=== PATIENT | female | born 1990 | race African-American/Black ===

== ENCOUNTER 2020-07-09 08:55 | Inpatient (IN) | payer BC, SELFPAY ==
[~2020-07-09] VITALS: Ht 160 cm; Wt 71.2 kg
[2020-07-09] MEDS ORDERED: LR 1,000 ML IV SCH ×2 (10:15→10:30)
[2020-07-09] MEDS ORDERED: NALBUPHINE HCL 10 MG/ML AMP IVP PRN (10:15)
[2020-07-09] MEDS ORDERED: OXYTOCIN/0.9 % SODIUM CHLORIDE 1,000 ML IV SCH (10:15)
[2020-07-09] MEDS ORDERED: FENT2mCg/mL-ROPIVA0.2%/NS EPID 200 ML EP SCH (10:23)
[2020-07-09] MEDS ORDERED: fentaNYL CITRATE/PF 100 MCG/2 ML AMP ONE (10:23)
[2020-07-09] MEDS ORDERED: ROPIVACAINE HCL/PF 0.2% 200 ML ONE (10:24)
[2020-07-09 10:34] LABS: BASOPHILS % (AUTO) 0.5 % (0.0-2.0); EOSINOPHILS # (AUTO) 0.3 K/uL (0.0-0.4); EOSINOPHILS % (AUTO) 2.7 % (0.0-4.0); HEMATOCRIT 33.7 % (36-48); HEMOGLOBIN 11.4 g/dL (12.0-16.0); LYMPHOCYTES # (AUTO) 2.2 K/uL (1.0-5.5); LYMPHOCYTES % (AUTO) 22.8 % (20.5-51.5); MEAN CORPUSCULAR HEMOGLOBIN 27 pg (27-31); MEAN CORPUSCULAR HGB CONC 34 % (32-36); MEAN CORPUSCULAR VOLUME 80 fL (79.0-98.0); MONOCYTES # (AUTO) 0.6 K/uL (0.0-1.0); MONOCYTES % (AUTO) 5.8 % (1.7-9.3); NEUTROPHILS # (AUTO) 6.6 K/uL (1.8-7.7); NEUTROPHILS % (AUTO) 68.2 % (40.0-70.0); PLATELET COUNT (AUTO) 223 K/uL (130-430); RED BLOOD CELL COUNT(AUTO) 4.18 MIL/uL (4.2-6.2); RED CELL DISTRIBUTION WIDTH 14.7 % (9.0-15.0); WHITE BLOOD COUNT (AUTO) 9.6 K/uL (4.8-10.8)
[2020-07-09] MEDS ORDERED: OXYTOCIN/0.9 % SODIUM CHLORIDE 1,000 ML IV ONE ×2 (11:51→17:45)
[2020-07-09 13:51] VITALS: BP_SYST 128
[2020-07-09] MEDS ORDERED: METHYLERGONOVINE MALEATE 0.2 MG/ML AMP ONE (17:40)
[2020-07-09] MEDS ORDERED: METHYLERGONOVINE MALEATE 0.2 MG/ML AMP IM ONE (17:40)
[2020-07-09] MEDS ORDERED: LANOLIN 7 GM OINT. TP PRN (17:45)
[2020-07-09] MEDS ORDERED: METHYLERGONOVINE MALEATE 0.2 MG TABLET PO PRN (17:45)
[2020-07-09] MEDS ORDERED: OXYCODONE/ACETAMINOPHEN 5-325 TABLET PO PRN ×2 (17:45)
[2020-07-09] MEDS ORDERED: ANUSOL 1 EA SUPP.RECT (PREPARATION H) RC PRN (17:45)
[2020-07-09] MEDS ORDERED: DERMOPLAST SPRAY TP PRN (17:45)
[2020-07-09] MEDS ORDERED: WITCH HAZEL LEAF 1 MED.PAD MED.PAD TP PRN (17:45)
[2020-07-09] MEDS ORDERED: OXYTOCIN 10 UNIT/ML VIAL ONE (17:46)
[2020-07-09] MEDS ORDERED: OXYTOCIN 10 UNIT/ML VIAL IM ONE (17:46)
[2020-07-09] MEDS ORDERED: TEMAZEPAM 15 MG CAPSULE PO PRN (21:00)
[2020-07-09] MEDS: IBUPROFEN 800 MG TABLET PO PRN (23:07)
[2020-07-09] MEDS: DOCUSATE SODIUM 100 MG CAPSULE PO PRN (23:07)
[2020-07-10] MEDS: IBUPROFEN 800 MG TABLET PO PRN ×4 (06:41→23:31)
[2020-07-10 07:20] LABS: HEMATOCRIT 31.4 % (36-48); HEMOGLOBIN 10.5 g/dL (12.0-16.0)
[2020-07-10] MEDS: DOCUSATE SODIUM 100 MG CAPSULE PO PRN (23:31)
[2020-07-11] MEDS: IBUPROFEN 800 MG TABLET PO PRN (06:12)
== END 2020-07-11 11:35 | disposition home or self-care (01) | DRG 807 ==
LOC: SPU 08:55
PROVIDERS: ADMIT Obstetrics & Gynecology; ATTEND Obstetrics & Gynecology
PROC: 10E0XZZ Delivery of Products of Conception, External Approach (ICD-10-PCS; principal; 2020-07-10)
PROC: 3E0R3BZ Introduction of Anesthetic Agent into Spinal Canal, Percutaneous Approach (ICD-10-PCS; 2020-07-10)
PROC: 00HU33Z Insertion of Infusion Device into Spinal Canal, Percutaneous Approach (ICD-10-PCS; 2020-07-10)
DX: O24.424 Gestational diabetes mellitus in childbirth, insulin controlled (principal); Z37.0 Single live birth; Z3A.39 39 weeks gestation of pregnancy
CPT/HCPCS: 36415; 82962; 85018-TC; 85025; 86592; 86886; 86900; 86901; J2210; J2590; J3010; J7120; U0003